=== PATIENT | female | born 1955 | race Caucasian/White ===

== ENCOUNTER 2016-11-10 09:21 | Day surgery (SDC) | payer BC ==
--- NOTE | ~2016-11-10 | EGD ---
EGD REPORT [facility] [address] [place] [address] NAME: ZAKIYA CADET : [birth year] STATUS : REG [facility]#: [id number] AGE: 61 ADM/REG DATE : 11/10/16 MR#: [id number] REPORT SERV DATE: 11/10/16 DICTATED BY: ELMER PRATT DATE: 11/10/16 REPORT STATUS : Draft TRANSCRIBED BY: [employer] DATE: 11/10/16 [facility] Center Patient Name: Zakiya Cadet Date of : 1955 Attending MD: ELMER PRATT MD Procedure Date No Time: 11/10/2016 Procedure: Colonoscopy Indications: High risk colon cancer surveillance: Personal history of colonic polyps Referring MD: JACK SUNG JR. Medicines: as per anesthesia Complications: No immediate complications. Procedure: Pre-Anesthesia Assessment: - ASA Grade Assessment: II - A patient with mild systemic disease. After I obtained informed consent, the scope was passed under direct vision. Throughout the procedure, the patient's blood pressure, pulse, and oxygen saturations were monitored continuously. The PCF [id number] was introduced through the anus and advanced to the cecum, identified by appendiceal orifice and ileocecal valve. The colonoscopy was performed without difficulty. The patient tolerated the procedure. The quality of the bowel preparation was fair. Findings: The perianal and digital rectal examinations were normal. Internal hemorrhoids were found during endoscopy and were mild. Impression: - Internal hemorrhoids. Recommendation: - Repeat colonoscopy in 3 years for surveillance. Procedure Code(s): --- Professional --- 64514, Colonoscopy, flexible, proximal to splenic flexure; diagnostic, with or without collection of specimen(s) by brushing or washing, with or without colon decompression (separate procedure) Diagnosis Code(s): --- Professional --- K64.8, Other hemorrhoids Z86.010, Personal history of colonic polyps CPT copyright 2013 [employer]. All rights reserved. EGD REPORT [facility] [address] [address] NAME: ZAKIYA CADET : [birth year] STATUS : REG [facility]#: [id number] AGE: 61 ADM/REG DATE : 11/10/16 MR#: [id number] REPORT SERV DATE: 11/10/16 DICTATED BY: ELMER PRATT. DATE: 11/10/16 REPORT STATUS : Draft TRANSCRIBED BY: [employer] DATE: 11/10/16 The codes documented in this report are preliminary and upon track coach review may be revised to meet current compliance requirements. ELMER PRATT MD 11/10/2016 12:20 PM This report has been signed electronically. Number of Addenda: 0 Note Initiated On: 11/10/2016 11:[address] [place], [place] [address]DOM[place] [id number]
[~2016-11-10 09:21] MED LIST: CRESTOR10 PO; MOBIC15 MG PO; PERCOGESIC TAB1 TAB PO; TUMSROLL PO; VITAMIN D31000 UNIT PO
== END 2016-11-10 23:59 | disposition home or self-care (01) ==
LOC: DMU 09:21
PROVIDERS: Internal Medicine Gastroenterology
PROC: 0DJD8ZZ Inspection of Lower Intestinal Tract, Via Natural or Artificial Opening Endoscopic (ICD-10-PCS; principal; 2016-11-10 10:30)
DX: Z12.11 Encounter for screening for malignant neoplasm of colon (principal); K64.8 Other hemorrhoids; E78.5 Hyperlipidemia, unspecified; Z86.010 Personal history of colon polyps; Z88.5 Allergy status to narcotic agent; Z79.899 Other long term (current) drug therapy; Z98.890 Other specified postprocedural states; Z90.89 Acquired absence of other organs